=== PATIENT | female | born 1995 | race Caucasian/White ===

== ENCOUNTER 2017-05-11 16:51 | Emergency (ER) | payer MEDICAID ==
[2017-05-11] MEDS ORDERED: ONDANSETRON HCL IV 4 MG/2 ML VIAL IV ONE (17:27)
[2017-05-11] MEDS ORDERED: 0.9 % SODIUM CHLORIDE 1,000 ML BAG IV ONE (17:27)
[2017-05-11 17:32] LABS: URINE APPEARANCE SL CLOUDY; URINE BILIRUBIN NEGATIVE (NEGATIVE); URINE BLOOD TRACE-I (NEGATIVE); URINE COLOR YELLOW; URINE GLUCOSE (UA) NEGATIVE (NEGATIVE); URINE KETONE NEGATIVE (NEGATIVE); URINE LEUKOCYTE ESTERASE NEGATIVE (NEGATIVE); URINE NITRITE NEGATIVE (NEGATIVE); URINE PROTEIN NEGATIVE (NEGATIVE); URINE UROBILINOGEN 0.2 E.U./dL (0.20 - 1.00)
--- NOTE | 2017-05-11 17:34 | Emergency Department Record ---
History of Present Illness - General Chief complaint: Vomiting Stated complaint: VOMITING,LT SIDE PAIN Time Seen by Provider: 05/11/17 17:24 Source: Patient, RN notes reviewed Mode of Arrival: Ambulatory - History of Present Illness Initial comments: left sided abdominal pain and vomiting 20 times today and her LMP was 4 months ago and she has never been before. sexually active no BCP MD complaint: Abdominal pain, Vomiting Onset/Timin -: Days(s) Description of Vomiting: Other Associated Abdominal Pain: Yes Location: LUQ, LLQ Radiation: None Severity scale (1-10): 8 Quality: Sharp Consistency: Constant Improves with: None Worsens with: Vomiting Associated Symptoms: Nausea/vomiting - Related Data Previous Rx's Medication Instructions Recorded Dicyclomine HCl [Bentyl] 10 mg PO Q8H #20 cap 05/11/17 Ondansetron HCl [Zofran] 4 mg PO Q4HR #14 tablet 05/11/17 Allergies Allergy/AdvReac Type Severity Reaction Status Date / Time No Known Drug Allergies Allergy Verified 02/12/16 18:03 Travel Screening - Travel/Exposure Within Last 30 Days Have you traveled within the last 30 days?: No Review of Systems Reviewed: No additional complaints except as noted below Constitutional: Reports: As per HPI. Denies: Chills, Fever, Malaise, Night sweats, Weakness, Weight change Eyes: Reports: As per HPI. Denies: Eye discharge, Eye pain, Photophobia, Vision change ENT: Reports: As per HPI. Denies: Congestion, Dental pain, Ear pain, Epistaxis , Hearing loss, Throat pain Respiratory: Reports: As per HPI. Denies: Cough, Dyspnea, Hemoptysis, Stridor, Wheezes Cardiovascular: Reports: As per HPI. Denies: Arrhythmia, Chest pain, Dyspnea on exertion, Edema, Murmurs, Orthopnea, Palpitations, Paroxysmal nocturnal dyspnea, Rheumatic Fever, Syncope Endocrine: Reports: As per HPI. Denies: Fatigue, Heat or cold intolerance, Polydipsia, Polyuria Gastrointestinal: Reports: As per HPI, Abdominal pain, Vomiting. Denies: Constipation, Diarrhea, Hematemesis, Hematochezia, Melena, Nausea Genitourinary: Reports: As per HPI. Denies: Abnormal menses, Discharge, Dyspareunia, Dysuria, Frequency, Hematuria, Incontinence, Retention, Urgency Musculoskeletal: Reports: As per HPI. Denies: Arthralgia, Back pain, Gout, Joint swelling, Myalgia, Neck pain Skin: Reports: As per HPI. Denies: Bruising, Change in color, Change in hair/ nails, Lesions, Pruritus, Rash Neurological: Reports: As per HPI. Denies: Abnormal gait, Confusion, Headache, Numbness, Paresthesias, Seizure, Tingling, Tremors, Vertigo, Weakness Psychiatric: Reports: As per HPI. Denies: Anxiety, Auditory hallucinations, Depression, Homicidal thoughts, Suicidal thoughts, Visual hallucinations Hematological/Lymphatic: Reports: As per HPI. Denies: Anemia, Blood Clots, Easy bleeding, Easy bruising, Swollen glands Past Medical History - SOCIAL HISTORY Smoking Status: Current every day smoker Alcohol Use: Rare Drug Use Detail:: Marijuana - RESPIRATORY Hx Respiratory Disorders: Yes Hx Asthma: Yes - CARDIOVASCULAR Hx Cardio Disorders: No - NEURO Hx Neuro Disorders: No - GI Hx GI Disorders: No - Hx Genitourinary Disorders: No - ENDOCRINE Hx Endocrine Disorders: No - MUSCULOSKELETAL Hx Musculoskeletal Disorders: No - PSYCH Hx Psych Problems: No - HEMATOLOGY/ONCOLOGY Hx Hematology/Oncology Disorders: No Family Medical History Any Significant Family History?: No Physical Exam - General General Appearance: Alert, Oriented x3, Cooperative, No acute distress - Head Head exam: Normal inspection - Eye Eye exam: Normal appearance, PERRL Pupils: Normal accommodation - ENT ENT exam: Normal exam, Mucous membranes moist, Normal external ear exam, Normal orophraynx, TM's normal bilaterally Ear exam: Normal external inspection. negative: External canal tenderness Nasal Exam: Normal inspection. negative: Discharge, Sinus tenderness Mouth exam: Normal external inspection, Tongue normal Teeth exam: Normal inspection. negative: Dental caries Throat exam: Normal inspection. negative: Tonsillar erythema, Tonsillar exudate - Neck Neck exam: Normal inspection, Full ROM. negative: Tenderness - Respiratory Respiratory exam: Normal lung sounds bilaterally. negative: Respiratory distress - Cardiovascular Cardiovascular Exam: Regular rate, Normal rhythm, Normal heart sounds - GI/Abdominal GI/Abdominal exam: Soft, Normal bowel sounds, Tenderness (left upper and lower abdominal pain) - Rectal Rectal exam: Deferred - exam: Deferred - Extremities Extremities exam: Normal inspection, Full ROM, Normal capillary refill. negative: Tenderness - Back Back exam: Reports: Normal inspection, Full ROM. Denies: Muscle spasm, Rash noted, Tenderness - Neurological Neurological exam: Alert, Normal gait, Oriented X3, Reflexes normal - Psychiatric Psychiatric exam: Normal affect, Normal mood - Skin Skin exam: Dry, Intact, Normal color, Warm Course Vital Signs 05/11/17 17:14 Temperature 98.2 F Pulse Rate 77 Respiratory 16 Rate Blood Pressure 111/66 Pulse Ox 98 Medical Decision Making - Lab Data Result diagrams: 05/11/17 17:30 05/11/17 17:30 Disposition Clinical Impression: Abdominal pain with vomiting Disposition: Home, Self-Care Condition: (1) Good Instructions: Acute Nausea and Vomiting (ED) Additional Instructions: clear liquids for 12 hours than bananas,rice applesauce toast and yogurt Prescriptions: Ondansetron HCl [Zofran] 4 mg PO Q4HR #14 tablet Dicyclomine HCl [Bentyl] 10 mg PO Q8H #20 cap Forms: Patient Portal Access Time of Disposition: 18:30 Quality - Quality Measures Quality Measures: N/A - Blood Pressure Screening Does Patient Have Any of the Following: No Blood Pressure Classification: Normal BP Reading Systolic Measurement: 111 Diastolic Measurement: 66 Screening for High Blood Pressure: < Normal BP, F/U Not Required > [G8783]
[2017-05-11 17:35] LABS: HCG,QUALITATIVE URINE NEGATIVE (NEGATIVE)
[2017-05-11 17:40] LABS: URINE BACTERIA FEW; URINE SQUAMOUS EPITHELIAL CELL 21 - 35 /hpf
[2017-05-11 17:49] LABS: BASO % 0.8 % (0-6); EOS % 2.8 % (0-6); GRAN % 52.6 % (47-80); HEMATOCRIT 40.6 % (35.0-47.0); HEMOGLOBIN 13.9 gm/dl (11.6-16.0); LYMPH % 33.5 % (16-45); MEAN CELL VOLUME 94.4 fl (81-97); MEAN CORPUSCULAR HEMOGLOBIN 32.3 pg (27-33); MEAN CORPUSCULAR HGB CONC 34.2 g/dl (32-36); MEAN PLATELET VOLUME 9.7 fl (7.4-10.4); MONO % 10.3 % (0-9); PLATELET COUNT 209 K/uL (130-400); RED CELL DISTRIBUTION WIDTH 12.8 % (11.5-14.5)
[2017-05-11 18:05] LABS: ALBUMIN 4.3 g/dL (4.0-5.0); ALKALINE PHOSPHATASE 50 U/L (35-104); ALT/SGPT 10 U/L (<33); AST/SGOT 17 U/L (10.0-35.0); BILIRUBIN,DIRECT 0.2 mg/dL (0-0.3); BLOOD UREA NITROGEN 27.9 mg/dL (12.6-42.6); CREATININE 0.7 mg/dL (0.5-0.9); GLUCOSE,RANDOM 95 mg/dL (74-109); LIPASE 14 U/L (13-60); TOTAL PROTEIN 6.8 g/dL (6.6-8.7)
--- NOTE | 2017-05-11 18:38 | Emergency Department Record ---
History of Present Illness - General Chief complaint: Vomiting Stated complaint: VOMITING,LT SIDE PAIN Time Seen by Provider: 05/11/17 17:24 Source: Patient, RN notes reviewed Mode of Arrival: Ambulatory - History of Present Illness MD complaint: Abdominal pain, Vomiting Onset/Timin -: Days(s) Description of Vomiting: Other Associated Abdominal Pain: Yes Location: LUQ, LLQ Radiation: None Severity scale (1-10): 8 Quality: Sharp Consistency: Constant Improves with: None Worsens with: Vomiting Associated Symptoms: Nausea/vomiting - Related Data Previous Rx's Medication Instructions Recorded Dicyclomine HCl [Bentyl] 10 mg PO Q8H #20 cap 05/11/17 Ondansetron HCl [Zofran] 4 mg PO Q4HR #14 tablet 05/11/17 Allergies Allergy/AdvReac Type Severity Reaction Status Date / Time No Known Drug Allergies Allergy Verified 02/12/16 18:03 Travel Screening - Travel/Exposure Within Last 30 Days Have you traveled within the last 30 days?: No Review of Systems Constitutional: Reports: As per HPI. Denies: Chills, Fever, Malaise, Night sweats, Weakness, Weight change Eyes: Reports: As per HPI. Denies: Eye discharge, Eye pain, Photophobia, Vision change ENT: Reports: As per HPI. Denies: Congestion, Dental pain, Ear pain, Epistaxis , Hearing loss, Throat pain Respiratory: Reports: As per HPI. Denies: Cough, Dyspnea, Hemoptysis, Stridor, Wheezes Cardiovascular: Reports: As per HPI. Denies: Arrhythmia, Chest pain, Dyspnea on exertion, Edema, Murmurs, Orthopnea, Palpitations, Paroxysmal nocturnal dyspnea, Rheumatic Fever, Syncope Endocrine: Reports: As per HPI. Denies: Fatigue, Heat or cold intolerance, Polydipsia, Polyuria Gastrointestinal: Reports: As per HPI, Abdominal pain, Vomiting. Denies: Constipation, Diarrhea, Hematemesis, Hematochezia, Melena, Nausea Genitourinary: Reports: As per HPI. Denies: Abnormal menses, Discharge, Dyspareunia, Dysuria, Frequency, Hematuria, Incontinence, Retention, Urgency Musculoskeletal: Reports: As per HPI. Denies: Arthralgia, Back pain, Gout, Joint swelling, Myalgia, Neck pain Skin: Reports: As per HPI. Denies: Bruising, Change in color, Change in hair/ nails, Lesions, Pruritus, Rash Neurological: Reports: As per HPI. Denies: Abnormal gait, Confusion, Headache, Numbness, Paresthesias, Seizure, Tingling, Tremors, Vertigo, Weakness Psychiatric: Reports: As per HPI. Denies: Anxiety, Auditory hallucinations, Depression, Homicidal thoughts, Suicidal thoughts, Visual hallucinations Hematological/Lymphatic: Reports: As per HPI. Denies: Anemia, Blood Clots, Easy bleeding, Easy bruising, Swollen glands Past Medical History - SOCIAL HISTORY Smoking Status: Current every day smoker Alcohol Use: Rare Drug Use Detail:: Marijuana - RESPIRATORY Hx Respiratory Disorders: Yes Hx Asthma: Yes - CARDIOVASCULAR Hx Cardio Disorders: No - NEURO Hx Neuro Disorders: No - GI Hx GI Disorders: No - Hx Genitourinary Disorders: No - ENDOCRINE Hx Endocrine Disorders: No - MUSCULOSKELETAL Hx Musculoskeletal Disorders: No - PSYCH Hx Psych Problems: No - HEMATOLOGY/ONCOLOGY Hx Hematology/Oncology Disorders: No Family Medical History Any Significant Family History?: No Course Vital Signs 05/11/17 17:14 Temperature 98.2 F Pulse Rate 77 Respiratory 16 Rate Blood Pressure 111/66 Pulse Ox 98 Medical Decision Making - Lab Data Result diagrams: 05/11/17 17:30 05/11/17 17:30 Lab Results 05/11/17 05/11/17 05/11/17 Range/Units 17:25 17:30 17:30 WBC 6.0 (4.2-12.2) K/uL RBC 4.30 (3.80-5.40) M/uL Hgb 13.9 (11.6-16.0) gm/dl Hct 40.6 (35.0-47.0) % MCV 94.4 (81-97) fl MCH 32.3 (27-33) pg MCHC 34.2 (32-36) g/dl RDW 12.8 (11.5-14.5) % Plt Count 209 (130-400) K/uL MPV 9.7 (7.4-10.4) fl Gran % 52.6 (47-80) % Lymphocytes % 33.5 (16-45) % Monocytes % 10.3 H (0-9) % Eosinophils % 2.8 (0-6) % Basophils % 0.8 (0-6) % Sodium 142 (136-145) mmol/L Potassium 3.9 (3.4-4.5) mmol/L Chloride 105 (98-107) mmol/L Carbon Dioxide 26.0 (22-29) mmol/L Anion Gap 11.0 (7-16) BUN 27.9 (12.6-42.6) mg/dL Creatinine 0.7 (0.5-0.9) mg/dL Estimated GFR TNP Random Glucose 95 (74-109) mg/dL Calcium 9.1 (8.6-10.0) mg/dL Total Bilirubin 0.40 (0.2-1.0) mg/dL Direct Bilirubin 0.2 (0-0.3) mg/dL AST 17 (10.0-35.0) U/L ALT 10 (<33) U/L Alkaline Phosphatase 50 (35-104) U/L Total Protein 6.8 (6.6-8.7) g/dL Albumin 4.3 (4.0-5.0) g/dL Lipase 14 (13-60) U/L Urine Color Yellow Urine Appearance Sl cloudy Urine pH 6.0 (5.0-8.0) Ur Specific [place] 1.025 (1.002-1.030) Urine Protein Negative (NEGATIVE) Urine Glucose (UA) Negative (NEGATIVE) Urine Ketones Negative (NEGATIVE) Urine Blood Trace-i (NEGATIVE) Urine Nitrite Negative (NEGATIVE) Urine Bilirubin Negative (NEGATIVE) Urine Urobilinogen 0.2 (0.20 - 1.00) E.U./dL Ur Leukocyte Esterase Negative (NEGATIVE) Urine RBC 3 - 6 (NONE SEEN) Urine WBC 3 - 5 (0-2/hpf) U Non-Squamous Epi Cells 21 - 35 /hpf Urine Bacteria Few Urine HCG, Qual Negative (NEGATIVE) Disposition Clinical Impression: Abdominal pain with vomiting, Gastroenteritis Disposition: Home, Self-Care Condition: (1) Good Instructions: Acute Nausea and Vomiting (ED) Additional Instructions: clear liquids for 12 hours than bananas,rice applesauce toast and yogurt Prescriptions: Ondansetron HCl [Zofran] 4 mg PO Q4HR #14 tablet Dicyclomine HCl [Bentyl] 10 mg PO Q8H #20 cap Forms: Patient Portal Access Time of Disposition: 18:38 Quality - Quality Measures Quality Measures: N/A - Blood Pressure Screening Does Patient Have Any of the Following: No Blood Pressure Classification: Normal BP Reading Systolic Measurement: 111 Diastolic Measurement: 66 Screening for High Blood Pressure: < Normal BP, F/U Not Required > [G0904]
--- NOTE | 2017-05-12 07:48 | ULTRASOUND REPORT ---
EXAM: FIRST TRIMESTER OB ULTRASOUND WITH TRANSVAGINAL HISTORY: EARLY . LEFT SIDED PELVIC PAIN AND VOMITING. TECHNIQUE: Sonographic evaluation was performed using transabdominal and transvaginal probes. Cisneros scale, color Doppler and Duplex Doppler imaging were utilized. Comparison: Previous pelvic ultrasound dated 06/10/15. FINDINGS: TRANSABDOMINAL PELVIC ULTRASOUND: Th uterus is only faintly visualized on the transabdominal images. The bladder is nearly empty. The uterus appears normal in size measuring approximately 5.3 cm in length. The myometrium is unremarkable. The endometrium is only faintly visualized, but appears normal measuring approximately 6 mm. There is no visible intrauterine gestational sac or endometrial fluid. The right ovary is normal in appearance and size measuring 4.2 x 2.6 x 2.2 cm. The left ovary is not visualized transabdominally. There is no free fluid within the pelvis. TRANSVAGINAL PELVIC ULTRASOUND: The uterus is normal in size measuring 6.9 x 2.2 x 3.7 cm. The myometrium is unremarkable. The endometrium is normal in thickness measuring 5 mm. There is no intrauterine gestational sac or abnormal fluid. There are multiple small peripherally located follicles throughout both ovaries suggesting underlying polycystic ovarian disease. There is no dominant follicle or mass. The right ovary measures 2.9 x 1.8 x 4.6 cm and the left ovary measures 2.2 x 2.1 x 4.8 cm. There is trace free fluid within the posterior cul-de-sac. Duplex Doppler ultrasound was performed to assess for ovarian torsion. Color Doppler images show symmetric blood flow within the ovaries. Intraovarian spectral venous and arterial waveforms are symmetrical and demonstrate unremarkable uncorrected velocities. There is no ovarian torsion. IMPRESSION: 1. NORMAL UTERUS. THERE IS NO EVIDENCE FOR AN INTRAUTERINE GESTATIONAL SAC. RECOMMEND CORRELATION WITH HCG MEASUREMENTS. 2. THERE ARE MULTIPLE SMALL PERIPHERALLY LOCATED FOLLICLES WITHIN BOTH OVARIES SUGGESTING UNDERLYING POLYCYSTIC OVARIAN SYNDROME. THERE IS NO TORSION. 3. TRACE SIMPLE FREE FLUID WITHIN THE POSTERIOR CUL-DE-SAC. JOB NUMBER: [id number] [facility]
--- NOTE | 2017-05-12 07:50 | ULTRASOUND REPORT ---
EXAM: COMPLETE RETROPERITONEAL ULTRASOUND HISTORY: LEFT FLANK PAIN. TECHNIQUE: Sonographic evaluation of the kidneys and urinary bladder was performed in the standard fashion. Comparison: None. FINDINGS: The bladder is nearly completely empty. Only a small amount of fluid is present. The bladder appears grossly normal. Both kidneys are normal in size and appearance. There is no hydronephrosis, mass, or calculus. The right kidney measures 10.1 x 3.6 x 5.4 cm and the left kidney measures 10.8 x 4.5 x 5.5 cm. IMPRESSION: NORMAL KIDNEYS AND URINARY BLADDER. JOB NUMBER: [id number] [facility]
== END 2017-05-11 18:57 | disposition home or self-care (01) ==
LOC: ER 16:51
DX: K52.9 Noninfective gastroenteritis and colitis, unspecified (principal); R11.2 Nausea with vomiting, unspecified; R10.84 Generalized abdominal pain
CPT/HCPCS: 99284 ×2; 96374; 96361; 83690; 85025; 80076; 80048; 81001; 81025; 76775; 76856; 76830; J2405; J7030

== ENCOUNTER 2018-01-10 12:35 | Emergency (ER) | payer SELFPAY ==
--- NOTE | 2018-01-10 12:51 | Emergency Department Record ---
History of Present Illness - General Chief complaint: Female Urogenital Problem Stated complaint: UTI Time Seen by Provider: 01/10/18 12:38 Source: Patient Mode of Arrival: Ambulatory Limitations: No limitations - History of Present Illness Initial comments: 22 yo female presents with burning with urination. This has been ongoing for a week. No fever, vomiting, abdominal pain or blood in the urine. No history of urologic disorders. No abnormal bleeding. She does have a mild vaginal discharge. She is sexually active. MD Complaint: Dysuria, Pelvic pain Onset/Timin -: Days(s) Location: Suprapubic Severity scale (1-10): 10 Quality: Burning, Sharp Consistency: Constant Improves with: None Worsens with: Urination Patient : No Associated Symptoms: Denies other symptoms - Related Data Sexually active: Yes Previous Rx's Medication Instructions Recorded Cephalexin [Keflex] 500 mg PO TID #21 cap 01/10/18 Allergies Allergy/AdvReac Type Severity Reaction Status Date / Time No Known Drug Allergies Allergy Verified 02/12/16 18:03 Travel Screening - Travel/Exposure Within Last 30 Days Have you traveled within the last 30 days?: No Review of Systems Constitutional: Denies: Chills, Fever, Malaise, Weakness Eyes: Denies: Eye discharge, Eye pain, Photophobia, Vision change ENT: Denies: Congestion, Throat pain Respiratory: Denies: Cough, Dyspnea, Hemoptysis, Stridor, Wheezes Cardiovascular: Denies: Chest pain, Palpitations, Syncope Endocrine: Denies: Fatigue, Polydipsia, Polyuria Gastrointestinal: Reports: Abdominal pain. Denies: Diarrhea, Nausea, Vomiting Genitourinary: Reports: Dysuria, Frequency, Urgency Musculoskeletal: Denies: Arthralgia, Back pain, Neck pain Skin: Denies: Bruising, Change in color, Rash Neurological: Denies: Headache, Numbness, Weakness Psychiatric: Denies: Anxiety Hematological/Lymphatic: Denies: Blood Clots, Easy bleeding, Easy bruising, Swollen glands Past Medical History - SOCIAL HISTORY Smoking Status: Current every day smoker Alcohol Use: None Drug Use: None - RESPIRATORY Hx Respiratory Disorders: Yes Hx Asthma: Yes - CARDIOVASCULAR Hx Cardio Disorders: No - NEURO Hx Neuro Disorders: No - GI Hx GI Disorders: No - Hx Genitourinary Disorders: No - ENDOCRINE Hx Endocrine Disorders: No - MUSCULOSKELETAL Hx Musculoskeletal Disorders: No - PSYCH Hx Psych Problems: No - HEMATOLOGY/ONCOLOGY Hx Hematology/Oncology Disorders: No Family Medical History Any Significant Family History?: No Physical Exam - General General Appearance: Alert, Oriented x3, Cooperative, No acute distress Limitations: No limitations - Head Head exam: Normal inspection - Eye Eye exam: Normal appearance, PERRL. negative: Conjunctival injection, Scleral icterus - ENT ENT exam: Normal exam Ear exam: Normal external inspection Nasal Exam: Normal inspection Mouth exam: Normal external inspection Teeth exam: Normal inspection Throat exam: Normal inspection - Neck Neck exam: Normal inspection, Full ROM. negative: Tenderness - Respiratory Respiratory exam: Normal lung sounds bilaterally. negative: Respiratory distress - Cardiovascular Cardiovascular Exam: Regular rate, Normal rhythm, Normal heart sounds - GI/Abdominal GI/Abdominal exam: Soft. negative: Distended, Guarding, Rebound, Rigid - Rectal Rectal exam: Deferred - exam: Vaginal discharge. negative: Adnexal mass (L), Adnexal mass (R), Adnexal tenderness (L), Adnexal tenderness (R), Cervical discharge, cervical motion tenderness, Enlarged uterus, Normal bimanual exam, Vaginal bleeding, Vaginal erythema - Extremities Extremities exam: Normal inspection, Full ROM, Normal capillary refill. negative: Tenderness - Back Back exam: Denies: CVA tenderness (R), CVA tenderness (L) - Neurological Neurological exam: Alert, Normal gait, Oriented X3 - Psychiatric Psychiatric exam: Normal affect, Normal mood - Skin Skin exam: Dry, Intact, Normal color, Warm Course Vital Signs 01/10/18 12:40 Temperature 98.5 F Pulse Rate 66 Respiratory 20 Rate Blood Pressure 98/59 Pulse Ox 97 - Reevaluation(s) Reevaluation #1: 01/10/18 12:50 vitals reviewed no acute changes 01/10/18 13:24 She reports a history of herpes and chlamydia in the past. I recommended treatment given her pain. She agrees. No active herpes clinically at this time. 01/10/18 14:00 UA was reviewed Consistent with UTI Disposition Disposition: Discharge Clinical Impression: UTI (urinary tract infection) Disposition: Home, Self-Care Condition: (1) Good Instructions: Urinary Tract Infection in Women (ED) Additional Instructions: Call your doctor for followup this week Return if worse You have cultures of the pelvic exam swabs that will be available in 3 days Prescriptions: Cephalexin [Keflex] 500 mg PO TID #21 cap Forms: Patient Portal Access Time of Disposition: 14:02 Quality - Quality Measures Quality Measures: N/A - Blood Pressure Screening Does Patient Have Any of the Following: No Blood Pressure Classification: Normal BP Reading Systolic Measurement: 98 Diastolic Measurement: 59 Screening for High Blood Pressure: < Normal BP, F/U Not Required > [G8783]
[2018-01-10 12:59] LABS: URINE APPEARANCE CLOUDY; URINE BILIRUBIN NEGATIVE (NEGATIVE); URINE BLOOD SMALL (NEGATIVE); URINE COLOR YELLOW; URINE GLUCOSE (UA) NEGATIVE (NEGATIVE); URINE KETONE NEGATIVE (NEGATIVE); URINE LEUKOCYTE ESTERASE MODERATE (NEGATIVE); URINE NITRITE NEGATIVE (NEGATIVE); URINE PROTEIN NEGATIVE (NEGATIVE); URINE UROBILINOGEN 0.2 E.U./dL (0.20 - 1.00)
[2018-01-10 13:15] LABS: HCG,QUALITATIVE URINE NEGATIVE (NEGATIVE); URINE EPITHELIAL CELLS 0 - 2 (FEW); URINE RBC 21 - 35 (NONE SEEN); URINE WBC 36 - 50 (0-2/hpf)
[2018-01-10] MEDS ORDERED: AZITHROMYCIN 500 MG TABLET PO ONE (13:23)
[2018-01-10] MEDS ORDERED: CEFTRIAXONE 250 MG VIAL IM ONE (13:23)
[2018-01-10] MEDS ORDERED: IBUPROFEN 600 MG TABLET PO ONE (13:23)
[2018-01-11 18:47] LABS: GC SPECIMEN TYPE Vaginal
== END 2018-01-10 14:13 | disposition home or self-care (01) ==
LOC: ER 12:35
DX: N39.0 Urinary tract infection, site not specified (principal); R31.29 Other microscopic hematuria; R10.2 Pelvic and perineal pain; F17.210 Nicotine dependence, cigarettes, uncomplicated
CPT/HCPCS: 99284 ×2; 96372; 81001; 81025; Q0111; J0696; 87210

== ENCOUNTER 2018-09-11 19:22 | Emergency (ER) | payer SELFPAY ==
--- NOTE | 2018-09-11 19:48 | Emergency Department Record ---
History of Present Illness - General Chief complaint: Flu Like Symptoms Stated complaint: FLU LIKE SYMPTOMS Time Seen by Provider: 09/11/18 19:22 Source: Patient Mode of Arrival: Ambulatory Limitations: No limitations - History of Present Illness Initial comments: 22 yo female presents to ED for evaluation of non-productive cough symptoms for the past 48 hours. Patient denies sore throat, fever, or nausea/vomiting symptoms. Patient denies health problems at her baseline, and denies any recent ill contacts. MD Complaint: Generalized weakness Onset/Timin -: Days(s) Location: Generalized Severity: Moderate Consistency: Constant Improves with: None Worsens with: None Associated Symptoms: Denies other symptoms - [place] Coma Scale Eye Response: (4) Open spontaneously Motor Response: (6) Obeys commands Verbal Response: (5) Oriented [place] Total: 15 - Related Data Previous Rx's Medication Instructions Recorded Benzonatate [Tessalon] 2 cap PO Q8H PRN #30 cap 09/11/18 Prednisone [Prednisone 20Mg] 20 mg PO TID #15 tab 09/11/18 Allergies Allergy/AdvReac Type Severity Reaction Status Date / Time No Known Drug Allergies Allergy Verified 02/12/16 18:03 Travel Screening - Travel/Exposure Within Last 30 Days Have you traveled within the last 30 days?: No Review of Systems Constitutional: Denies: Chills, Fever, Malaise, Night sweats Eyes: Denies: Eye discharge, Eye pain ENT: Denies: Congestion, Ear pain, Epistaxis Respiratory: Reports: Cough. Denies: Dyspnea, Hemoptysis Cardiovascular: Denies: Chest pain, Dyspnea on exertion Endocrine: Denies: Fatigue, Heat or cold intolerance Gastrointestinal: Denies: Abdominal pain, Nausea, Vomiting Genitourinary: Denies: Incontinence, Retention Musculoskeletal: Denies: Arthralgia, Back pain, Gout, Joint swelling Skin: Denies: Bruising, Change in color Neurological: Denies: Abnormal gait, Confusion, Headache, Seizure Psychiatric: Denies: Anxiety Hematological/Lymphatic: Denies: Anemia, Blood Clots Past Medical History - SOCIAL HISTORY Smoking Status: Current every day smoker - RESPIRATORY Hx Respiratory Disorders: Yes Hx Asthma: Yes - CARDIOVASCULAR Hx Cardio Disorders: No - NEURO Hx Neuro Disorders: No - GI Hx GI Disorders: No - Hx Genitourinary Disorders: No - ENDOCRINE Hx Endocrine Disorders: No - MUSCULOSKELETAL Hx Musculoskeletal Disorders: No - PSYCH Hx Psych Problems: No - HEMATOLOGY/ONCOLOGY Hx Hematology/Oncology Disorders: No Family Medical History Any Significant Family History?: No Physical Exam - General General Appearance: Alert, Oriented x3, Cooperative Limitations: No limitations - Head Head exam: Atraumatic, Normocephalic, Normal inspection Head exam detail: negative: Abrasion, Contusion, Will's sign, General tenderness, Hematoma, Laceration - Eye Eye exam: Normal appearance. negative: Conjunctival injection, Periorbital swelling, Periorbital tenderness, Scleral icterus - ENT Ear exam: negative: Auricular hematoma, Auricular trauma Nasal Exam: negative: Active bleeding, Discharge, Dried blood, Foreign body Mouth exam: negative: Drooling, Laceration, Muffled voice, Tongue elevation - Neck Neck exam: Normal inspection. negative: Meningismus, Tenderness - Respiratory Respiratory exam: Normal lung sounds bilaterally. negative: Rales, Respiratory distress, Rhonchi, Stridor - Cardiovascular Cardiovascular Exam: Regular rate, Normal rhythm, Normal heart sounds - GI/Abdominal GI/Abdominal exam: Soft. negative: Rebound, Rigid, Tenderness - Rectal Rectal exam: Deferred - exam: Deferred - Extremities Extremities exam: Normal inspection. negative: Calf tenderness, Pedal edema, Tenderness - Back Back exam: Denies: CVA tenderness (R), CVA tenderness (L) - Neurological Neurological exam: Alert, Normal gait, Oriented X3 - Psychiatric Psychiatric exam: Normal affect, Normal mood - Skin Skin exam: Normal color. negative: Abrasion Type of lesion: negative: abrasion Course Vital Signs 09/11/18 19:31 Temperature 98.6 F Pulse Rate 95 H Respiratory 20 Rate Blood Pressure 106/62 Pulse Ox 98 - Reevaluation(s) Reevaluation #1: 09/11/18 19:53 Patient's symptoms appear c/w acute viral bronchitis, will treat with Prednisone and tessalon Per[place] as directed. Patient is otherwise well appearing without evidence for bacterial infection Appears stable for discharge at this time. Disposition Disposition: Discharge Clinical Impression: Bronchitis Disposition: Home, Self-Care Condition: (2) Stable Instructions: Acute Bronchitis (ED) Additional Instructions: Return to ED if your symptoms worsen or if you have any concerns. Prednisone and Tessalon as directed. Follow-up with your family doctor in 3-5 days as directed Prescriptions: Benzonatate [Tessalon] 2 cap PO Q8H PRN #30 cap PRN Reason: Cough Prednisone [Prednisone 20Mg] 20 mg PO TID #15 tab Forms: Patient Portal Access Time of Disposition: 19:48 Quality - Quality Measures Quality Measures: N/A - Blood Pressure Screening Does Patient Have Any of the Following: No Blood Pressure Classification: Normal BP Reading Systolic Measurement: 106 Diastolic Measurement: 62 Screening for High Blood Pressure: < Normal BP, F/U Not Required > [G8783]
[2018-09-11 20:01] LABS: INFLUENZA A NEGATIVE (NEGATIVE); INFLUENZA B NEGATIVE (NEGATIVE)
--- NOTE | 2018-09-11 20:23 | Emergency Department Record ---
History of Present Illness - General Chief complaint: Flu Like Symptoms Stated complaint: FLU LIKE SYMPTOMS Time Seen by Provider: 09/11/18 19:22 Source: Patient Mode of Arrival: Ambulatory Limitations: No limitations - History of Present Illness MD Complaint: Generalized weakness Onset/Timin -: Days(s) Location: Generalized Severity: Moderate Consistency: Constant Improves with: None Worsens with: None Associated Symptoms: Denies other symptoms - [place] Coma Scale Eye Response: (4) Open spontaneously Motor Response: (6) Obeys commands Verbal Response: (5) Oriented [place] Total: 15 - Related Data Previous Rx's Medication Instructions Recorded Benzonatate [Tessalon] 2 cap PO Q8H PRN #30 cap 09/11/18 Prednisone [Prednisone 20Mg] 20 mg PO TID #15 tab 09/11/18 Allergies Allergy/AdvReac Type Severity Reaction Status Date / Time No Known Drug Allergies Allergy Verified 02/12/16 18:03 Travel Screening - Travel/Exposure Within Last 30 Days Have you traveled within the last 30 days?: No Review of Systems Constitutional: Denies: Chills, Fever, Malaise, Night sweats Eyes: Denies: Eye discharge, Eye pain ENT: Denies: Congestion, Ear pain, Epistaxis Respiratory: Reports: Cough. Denies: Dyspnea, Hemoptysis Cardiovascular: Denies: Chest pain, Dyspnea on exertion Endocrine: Denies: Fatigue, Heat or cold intolerance Gastrointestinal: Denies: Abdominal pain, Nausea, Vomiting Genitourinary: Denies: Incontinence, Retention Musculoskeletal: Denies: Arthralgia, Back pain, Gout, Joint swelling Skin: Denies: Bruising, Change in color Neurological: Denies: Abnormal gait, Confusion, Headache, Seizure Psychiatric: Denies: Anxiety Hematological/Lymphatic: Denies: Anemia, Blood Clots Past Medical History - SOCIAL HISTORY Smoking Status: Current every day smoker - RESPIRATORY Hx Respiratory Disorders: Yes Hx Asthma: Yes - CARDIOVASCULAR Hx Cardio Disorders: No - NEURO Hx Neuro Disorders: No - GI Hx GI Disorders: No - Hx Genitourinary Disorders: No - ENDOCRINE Hx Endocrine Disorders: No - MUSCULOSKELETAL Hx Musculoskeletal Disorders: No - PSYCH Hx Psych Problems: No - HEMATOLOGY/ONCOLOGY Hx Hematology/Oncology Disorders: No Family Medical History Any Significant Family History?: No Physical Exam - General Limitations: No limitations Course Vital Signs 09/11/18 19:31 Temperature 98.6 F Pulse Rate 95 H Respiratory 20 Rate Blood Pressure 106/62 Pulse Ox 98 Medical Decision Making - Lab Data Lab Results 09/11/18 Range/Units Unknown Influenza Type A Ag Negative (NEGATIVE) Influenza Type B Ag Negative (NEGATIVE) Disposition Clinical Impression: Bronchitis Disposition: Home, Self-Care Condition: (2) Stable Instructions: Acute Bronchitis (ED) Additional Instructions: Return to ED if your symptoms worsen or if you have any concerns. Prednisone and Tessalon as directed. Follow-up with your family doctor in 3-5 days as directed Prescriptions: Benzonatate [Tessalon] 2 cap PO Q8H PRN #30 cap PRN Reason: Cough Prednisone [Prednisone 20Mg] 20 mg PO TID #15 tab Forms: Patient Portal Access Time of Disposition: 20:23 Quality - Quality Measures Quality Measures: N/A - Blood Pressure Screening Does Patient Have Any of the Following: No Blood Pressure Classification: Normal BP Reading Systolic Measurement: 106 Diastolic Measurement: 62 Screening for High Blood Pressure: < Normal BP, F/U Not Required > [G8783]
== END 2018-09-11 19:59 | disposition home or self-care (01) ==
LOC: ER 19:22
DX: J20.8 Acute bronchitis due to other specified organisms (principal); R53.1 Weakness; F17.210 Nicotine dependence, cigarettes, uncomplicated
CPT/HCPCS: 87400; 99282